=== PATIENT | male | born 1975 | race American Indian/Alaskan Native ===

== ENCOUNTER 2017-10-02 06:28 | Emergency (ER) | payer BC ==
[2017-10-02 06:40] VITALS: PULSE 76; RESP 18; TEMP 98.2; O2SAT 99
--- NOTE | 2017-10-02 07:55 | ED PDOC ---
Arrival/HPI - General Historian: Patient <Kathleen Reynoso - Last Filed: 10/02/17 07:52> <Frida Lemons - Last Filed: 10/02/17 08:42> - General Chief Complaint: Dental Pain Time Seen by Provider: 10/02/17 07:50 - History of Present Illness Narrative History of Present Illness (Text): 10/02/17 07:49 HPI 49 M presents to ED for right sided swelling of jaw and cheek. Patient states he woke up around 5am with the jaw pain and came to the ED. Patient states he had parotiditis in the past. Patient has had a cold-like symptoms for the past few days (fevers sunday. cough, rhinorrhea). Patient admits to dry cough. Patient denies fevers, rhinorrhea at this time, headache, sore throat, dysphagia , nausea, vomiting, abdominal pain, chest pain. Patient denies medical history. (Kathleen Reynoso) Past Medical History - Provider Review Nursing Documentation Reviewed: Yes - Travel History Have you recently traveled outside [place] w/in the past 3 mons?: No - Cardiac Hx Hypertension: No - Psychiatric Hx Substance Use: No <AngelesKathleen - Last Filed: 10/02/17 07:52> Family/Social History Family/Social History: Unknown Family HX Smoking Status: n Hx Alcohol Use: No Hx Substance Use: No <AngelesKathleen - Last Filed: 10/02/17 07:52> Allergies/Home Meds <AngelesKathleen - Last Filed: 10/02/17 07:52> <Frida Lemnos - Last Filed: 10/02/17 08:42> Allergies/Adverse Reactions: Allergies iodine Allergy (Verified 10/02/17 06:40) RASH Home Medications: Home Meds Medication Instructions Recorded Confirmed Lisinopril [Prinivil] 5 mg PO DAILY 10/02/17 10/02/17 Review of Systems - Review of Systems Constitutional: absent: Fatigue, Weight Change, Fevers, Night Sweats Eyes: absent: Vision Changes, Photophobia, Eye Pain ENT: Other (lymphadenopathy). absent: Hearing Changes, Tinnitus, TMJ Pain, Voice Changes, Sore Throat, Rhinorrhea, Epistaxis, Sinus Congestion Respiratory: Cough. absent: SOB, Sputum, Wheezing, Other Cardiovascular: absent: Chest Pain, Palpitations, Edema, Calf Pain, GODDARD, Orthopnea, Syncope Gastrointestinal: absent: Abdominal Pain, Constipation, Diarrhea Musculoskeletal: Normal. absent: Arthralgias, Back Pain, Neck Pain, Joint Swelling Skin: absent: Rash, Pruritis, Skin Lesions, Laceration, Abscess Neurological: absent: Headache, Dizziness, Focal Weakness, Gait Changes, Speech Changes, Facial Droop, Disequilibrium, Seizure Endocrine: absent: Diaphoresis Psychiatric: absent: Anxiety, Depression, Suicidal Ideation <Eng,Kathleen - Last Filed: 10/02/17 07:52> Physical Exam Temperature: Afebrile Blood Pressure: Normal Pulse: Regular Respiratory Rate: Normal Appearance: Positive for: Uncomfortable Pain Distress: Moderate Mental Status: Positive for: Alert and Oriented X 3 - Systems Exam Head: Present: Atraumatic, Normocephalic, Other (tonsillar lymphadenopathy, parotid lymphadenopathy) Pupils: Present: PERRL Extroacular Muscles: Present: EOMI Conjunctiva: Present: Normal Ears: Present: Normal. No: Fluid Mouth: Present: Moist Mucous Membranes, Normal Lips, Normal Tounge, Other (no drainage or pus from stensen's duct on compression of buccal mucosa). No: Dry, Drooling, Trismus Pharnyx: Present: Normal. No: ERYTHEMA, EXUDATE, Peritonsilar Swelling, Uvular Deviation, Muffled/Hoarse Voice, Strider, Soft Palate/Uvular Edema Nose (External): Present: Atraumatic. No: Abrasion, Contusion, Laceration Nose (Internal): Present: Normal Inspection, Moist. No: No Active Bleeding, Engorged Neck: Present: Normal Range of Motion, Lymphadenopathy (tonsillar lymphadenopathy, parotid lymphadenopathy), Trachea Midline. No: Meningeal Signs , MIDLINE TENDERNESS Respiratory/Chest: Present: Clear to Auscultation. No: Respiratory Distress, Accessory Muscle Use, Decreased Breath Sounds Cardiovascular: Present: Regular Rate and Rhythm, Normal S1, S2 Abdomen: Present: Normal Bowel Sounds. No: Tenderness, Distention, Peritoneal Signs Upper Extremity: Present: Normal Inspection, Capillary Refill < 2s. No: Edema Lower Extremity: Present: Normal Inspection, Capillary Refill < 2 s. No: Edema Skin: Present: Warm, Dry, Normal Color. No: Rashes, Hot, Cold, Pale Psychiatric: Present: Alert, Oriented x 3 <Eng,[place] - Last Filed: 10/02/17 07:52> Vital Signs Temp Pulse Resp BP Pulse Ox 10/02/17 06:34 98.2 F 76 18 115/74 99 Medical Decision Making Reassessment Condition: Unchanged <Kathleen Reynoso - Last Filed: 10/02/17 07:52> - Medication Orders Current Medication Orders: Discontinued Medications Ibuprofen (Motrin Tab) 800 mg PO STAT STA Stop: 10/02/17 07:51 - PA / CRITICAL CARE PHYSICIAN / Resident Statement / has reviewed & agrees with the documentation as recorded. <Frida Lemons - Last Filed: 10/02/17 08:42> Disposition/Present on Arrival - Present on Arrival Any Indicators Present on Arrival: No History of DVT/PE: No History of Uncontrolled Diabetes: No Urinary Catheter: No History of Decub. Ulcer: No History Surgical Site Infection Following: None - Disposition Have Diagnosis and Disposition been Completed?: Yes Disposition Time: 08:07 Patient Plan: Discharge <Kathleen Reynsoo - Last Filed: 10/02/17 07:52> <VestaEstrellaNashiro - Last Filed: 10/02/17 08:42> - Disposition Diagnosis: Lymphadenitis, Viral syndrome Disposition: HOME/ ROUTINE Patient Problems: Current Active Problems Problem Status Onset Lymphadenitis Acute Viral syndrome Acute Condition: FAIR Discharge Instructions (ExitCare): Sialoadenitis (ED), Viral Syndrome (ED), Adenitis (ED) Print Language: DJIBOUTIAN Additional Instructions: Please take motrin as needed for the pain and seeeling. Get extra rest. Avoi dmilk and dairy and soft drinks. Drink fresh squeezed fruit and vegetable juices. If your swelling is worsening . 2) fever > 3 days 3) progressive difficulty swallowing then begin the prescribed antibiotics. anyu problems breathing or change in your voice then return to the ED. Prescriptions: Amoxicillin/Clavulanate [Augmentin 875 MG-125 MG] 1 tab PO BID #20 tab Benzonatate [Tessalon Perles] 100 mg PO TID PRN #30 sgl PRN Reason: Cough Ibuprofen [Motrin Tab] 600 mg PO Q6 PRN #40 tab PRN Reason: Pain, Moderate (4-7) Ipratropium [Atrovent HFA] 0.018 mg IH Q6 PRN #1 bottle PRN Reason: Cough Referrals: Jose Luis Velez MD [Primary Care Provider] - Follow up with primary Forms: [employer] (Algerian), WORK NOTE
[2017-10-02 08:50] VITALS: BP 119/67
== END 2017-10-02 08:51 | disposition home or self-care (01) ==
LOC: MERGE 06:28 → ED 06:28
DX: I88.9 Nonspecific lymphadenitis, unspecified (principal); B34.9 Viral infection, unspecified